=== PATIENT | male | born 1970 | race Two or more races ===

== ENCOUNTER 2016-07-16 06:22 | Emergency (ER) | payer OTHER ==
[~2016-07-16] VITALS: Ht 180.3 cm; Wt 163.3 kg
[~2016-07-16 06:22] MED LIST: ALL100T PO; CARV12.544 PO; FURO80TA PO; LOS50T PO; METF-372 PO; POT20T PO; PRED-188 PO; SPIR50TA2 PO
[2016-07-16 07:55] LABS: Basophils # (auto) 0.1 uL; Basophils % (auto) 0.9 % (0.0-2.0); Eosinophils # (auto) 0.2 uL; Eosinophils % (auto) 3.1 % (0.0-7.0); Hematocrit 39.5 % (41.0-53.0); Hemoglobin 13.6 g/dL (13.5-17.5); Lymphocytes # (auto) 1.3 uL; Lymphocytes % (auto) 17.2 % (10.0-50.0); Mean Corpuscular Hgb Conc. 34.3 g/dL (32.0-36.0); Mean Corpuscular Volume 90.2 fL (80.0-100.0); Monocytes # (auto) 0.7 uL; Monocytes % (auto) 8.7 % (0.0-12.0); Neutrophils # (auto) 5.5 uL; Neutrophils % (auto) 70.1 % (37.0-80.0); Platelet Count (auto) 336 10^3/uL (140-450); Red Cell Distribution Width 15.5 % (11.6-16.0); White Blood Cell 7.8 10^3/uL (4.4-10.8)
[2016-07-16 08:19] LABS: Albumin 3.7 g/dL (3.4-5.0); BUN/Creatinine Ratio 10.5; Calcium 8.6 mg/dL (8.5-10.1); Magnesium 1.8 mg/dL (1.6-2.6); Potassium 3.8 mmol/L (3.5-5.1); Total Protein 7.4 g/dL (6.4-8.2)
[2016-07-16] MEDS ORDERED: SODIUM CHLORIDE 0.9% 1,000 ML IV ONE (08:21)
[2016-07-16] MEDS ORDERED: MORPHINE SULF INJ 2 MG/ML SYRINGE 1ML IV ONE (08:30)
[2016-07-16] MEDS ORDERED: FUROSEMIDE 40 MG/4 ML VIAL IV ONE (08:30)
[2016-07-16] MEDS ORDERED: hydrALAZINE HCL 20 MG/ML VL IV ONE (08:30)
[2016-07-16 08:54] LABS: B-Type Natriuretic Peptide 348.21 pg/mL (0-100); Temperature: 23.5 C (20.0-25.0)
[2016-07-16 12:25] VITALS: BP 126/65
== END 2016-07-16 12:58 | disposition home or self-care (01) ==
LOC: ER 06:22
DX: I11.0 Hypertensive heart disease with heart failure (principal); I50.9 Heart failure, unspecified; R60.9 Edema, unspecified; E11.65 Type 2 diabetes mellitus with hyperglycemia; E03.9 Hypothyroidism, unspecified; E66.01 Morbid (severe) obesity due to excess calories; Z68.43 Body mass index [BMI] 50.0-59.9, adult; Z96.89 Presence of other specified functional implants; Z95.810 Presence of automatic (implantable) cardiac defibrillator; M10.9 Gout, unspecified; Z79.899 Other long term (current) drug therapy
CPT/HCPCS: 36415; 71020; 80053; 82962; 83735; 83880; 84443; 84484; 85025; 93005; 94761; 96361; 96374; 99285; J1940; J7030